=== PATIENT | female | born 1970 | race Caucasian/White ===

== ENCOUNTER 2018-09-04 08:21 | Day surgery (SDC) | payer MEDICAID ==
[2018-09-04] MEDS ORDERED: LIDOCAINE 1% 300 MG/30 ML SDV SC ONE (08:28)
--- NOTE | 2018-09-04 09:01 | PDGENHP ---
History & Physical Chief Complaint: Need to have LINQ explanted History of Present Illness: Patient is a 48 y/o female with CAD (by angiography) , GERD, DM, and HTN, with need to have LINQ explanted (placed in 2015). 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 No new symptoms noted. No specific cardiovascular complaints. Pertinent Past, Social, Family History: No new pertinent positives Relevant Physical Exam: Normal sinus rhythm with clear breath sounds Cardiorespiratory Assessment: RRR without m/r/g, no crackles. No assessory muscle use.
--- NOTE | 2018-09-04 09:42 | SUROPNOTE ---
[facility] Operative Report - Surgery After consent for the explant was signed, and time out was performed, the patient was prepped and draped in the usual sterile fashion. Lidocaine (1%) was placed to the palpated region around the LINQ. Using the old incision as a landmark, a small incision was made over the prior incision. Haemostasis was maintained without difficulty. The device was explanted without difficulty. Two minnie were used to close the incision. No complications. Follow up with cardiology has been scheduled. No systemic anesthesia was used for this procedure.
== END 2018-09-04 10:06 | disposition home or self-care (01) ==
LOC: FCATH 08:21
PROVIDERS: ATTEND Internal Medicine Cardiovascular Disease
PROC: 0JPT02Z Removal of Monitoring Device from Trunk Subcutaneous Tissue and Fascia, Open Approach (ICD-10-PCS; principal; 2018-09-04)
DX: Z45.09 Encounter for adjustment and management of other cardiac device (principal); R06.02 Shortness of breath; I25.10 Atherosclerotic heart disease of native coronary artery without angina pectoris; E11.9 Type 2 diabetes mellitus without complications; I10 Essential (primary) hypertension